=== PATIENT | female | born 1955 | race Hispanic/Latino ===

== ENCOUNTER 2018-01-09 22:45 | Emergency (ER) | payer OTHER, SELFPAY ==
[2018-01-09] MEDS ORDERED: DIAZEPAM 2 MG TABLET ONE (23:37)
[2018-01-09] MEDS ORDERED: HYDROCODONE/APAP 5/325 MG TAB ONE (23:37)
--- NOTE | 2018-01-10 01:19 | EDPHYS ---
Physician Documentation [facility] Name: Sri Traylor Age: 62 yrs Sex: Female : 1955 Arrival Date: 01/09/2018 Time: 22:46 Bed 23 Private MD: ED Physician Michele Martinez HPI: 01/09 23:30 This 62 yrs old Female presents to ER via Ambulatory with complaints of Fall snw Injury, Head Injury-Adult. 23:30 Details of fall: The patient fell from an upright position. Onset: The symptoms/episode snw began/occurred suddenly, today. Associated injuries: The patient sustained injury to the head, contusion, hematoma, swelling, tenderness. Severity of symptoms: At their worst the symptoms were moderate. The patient has not experienced similar symptoms in the past. The patient has not recently seen a physician. pt was mopping and her feet slipped out from under her and she struck her head on the floor. Historical: - Allergies: 22:57 No Known Allergies; tl3 - Home Meds: 22:57 None [Active]; tl3 - PMHx: 22:57 Cancer; tl3 - Immunization history:: Adult Immunizations not up to date. - Social history:: Smoking status: Patient uses tobacco products, smokes one-half pack cigarettes per day. - Ebola Screening: : No symptoms or risks identified at this time. ROS: 23:29 Constitutional: Negative for fever, chills, and weight loss, Eyes: Negative for injury, snw pain, redness, and discharge, ENT: Negative for injury, pain, and discharge, Neck: Negative for injury and swelling, + right lateral column tenderness Cardiovascular: Negative for chest pain, palpitations, and edema, Respiratory: Negative for shortness of breath, cough, wheezing, and pleuritic chest pain, Abdomen/GI: Negative for abdominal pain, nausea, vomiting, diarrhea, and constipation, Back: Negative for injury and pain, : Negative for injury, bleeding, discharge, and swelling, MS/Extremity: Negative for injury and deformity, Skin: Negative for injury, rash, and discoloration. 23:29 Neuro: Positive for striking head on the floor, no LOC, no vomiting. Exam: 23:28 Constitutional: This is a well developed, well nourished patient who is awake, alert, snw and in no acute distress. Eyes: Pupils equal round and reactive to light, extra-ocular motions intact. Lids and lashes normal. Conjunctiva and sclera are non-icteric and not injected. Cornea within normal limits. Periorbital areas with no swelling, redness, or edema. ENT: Nares patent. No nasal discharge, no septal abnormalities noted. Tympanic membranes are normal and external auditory canals are clear. Oropharynx with no redness, swelling, or masses, exudates, or evidence of obstruction, uvula midline. Mucous membranes moist. Neck: Trachea midline, no thyromegaly or masses palpated, and no cervical lymphadenopathy. Supple, full range of motion without nuchal rigidity, or vertebral point tenderness. No Meningismus. Chest/axilla: Normal chest wall appearance and motion. Nontender with no deformity. No lesions are appreciated. Cardiovascular: Regular rate and rhythm with a normal S1 and S2. No gallops, murmurs, or rubs. Normal PMI, no JVD. No pulse deficits. Respiratory: Lungs have equal breath sounds bilaterally, clear to auscultation and percussion. No rales, rhonchi or wheezes noted. No increased work of breathing, no retractions or nasal flaring. Abdomen/GI: Soft, non-tender, with normal bowel sounds. No distension or tympany. No guarding or rebound. No evidence of tenderness throughout. Back: No spinal tenderness. No costovertebral tenderness. Full range of motion. Skin: Warm, dry with normal turgor. Normal color with no rashes, no lesions, and no evidence of cellulitis. MS/ Extremity: Pulses equal, no cyanosis. Neurovascular intact. Full, normal range of motion. Neuro: Awake and alert, GCS 15, oriented to person, place, time, and situation. Cranial nerves II-XII grossly intact. Motor strength 5/5 in all extremities. Sensory grossly intact. Cerebellar exam normal. Normal gait. Psych: Awake, alert, with orientation to person, place and time. Behavior, mood, and affect are within normal limits. 23:28 Head/face: Noted is contusion, hematoma, that is moderate, of the occiput. Vital Signs: 22:57 BP 131 / 77; Pulse 73; Resp 18; Temp 98.6; Pulse Ox 99% on R/A; Weight 81.65 kg; Height tl3 5 ft. 1 in. (156 cm); 01/10 00:06 BP 128 / 78; Pulse 80; Resp 18; Pulse Ox 99% on R/A; Pain 4/10; mg2 01:09 BP 103 / 60; Pulse 65; Resp 18; Pulse Ox 97% ; Pain 2/10; mg2 01/09 22:57 Body Mass Index 33.55 (81.65 kg, 156 cm) tl3 MDM: 01/09 23:05 Patient medically screened. [facility] 01/10 01:19 Data reviewed: vital signs, nurses notes, radiologic studies. Data interpreted: Pulse snw oximetry: on room air is 97 %. Interpretation: normal. Counseling: I had a detailed discussion with the patient and/or guardian regarding: the historical points, exam findings, and any diagnostic results supporting the discharge/admit diagnosis, radiology results, to return to the emergency department if symptoms worsen or persist or if there are any questions or concerns that arise at home. Special discussion: Based on the patient's history, exam and DX evaluation, there is no indication for emergent intervention or inpatient TX. It is understood by the patient/guardian that if the SXs persist or worsen they need to return immediately for re-evaluation. Based on the history and exam findings, there is no indication for further emergent testing or inpatient evaluation. I discussed with the patient/guardian the need to see the primary care provider for further evaluation of the symptoms. 01/09 23:04 Order name: CT Head C Spine snw Administered Medications: 01/09 23:32 Drug: [place] 5 mg-325 mg 1 tabs Route: PO; mg2 01/10 01:36 Follow up: Response: No adverse reaction; Marked relief of symptoms mg2 01/09 23:33 Drug: Valium 2 mg Route: PO; mg2 01/10 01:36 Follow up: Response: No adverse reaction; Marked relief of symptoms mg2 Disposition: 06:06 Co-signature as Attending Physician, Michele Martinez MD I agree with the assessment and [facility] plan of care. Disposition: 01/10/18 01:18 Discharged to Home. Impression: Unspecified injury of head, Scalp hematoma. - Condition is Stable. - Discharge Instructions: Head Injury, Adult, Hematoma, Fall Prevention in the Home, Cryotherapy, Heat Therapy. - Prescriptions for Ultram 50 mg Oral Tablet - take 1 tablet by ORAL route every 6 hours As needed; 30 tablet. orphenadrine citrate 100 mg Oral Tablet Sustained Release - take 1 tablet by ORAL route 2 times per day As needed; 20 tablet. - Work release form, Medication Reconciliation Form, Thank You Letter, Antibiotic Education, Prescription Opioid Use form. - Follow up: Private Physician; When: 2 - 3 days; Reason: Recheck today's complaints, Continuance of care, Re-evaluation by your physician. Follow up: Emergency Department; When: As needed; Reason: Worsening of condition. Signatures: Dispatcher [employer] EDMichele Terry, Kerry Zamudio MD, cha, JOURNAL CLERK-C JOURNAL CLERK-Csnw Tayler James, RN RN tl3 Lai Arndt, RN RN mg2 Corrections: (The following items were deleted from the chart) 01:37 01:18 01/10/2018 01:18 Discharged to Home. Impression: Unspecified injury of head; mg2 Scalp hematoma. Condition is Stable. Forms are Medication Reconciliation Form, Thank You Letter, Antibiotic Education, Prescription Opioid Use. Follow up: Private Physician; When: 2 - 3 days; Reason: Recheck today's complaints, Continuance of care, Re-evaluation by your physician. Follow up: Emergency Department; When: As needed; Reason: Worsening of condition. snw
--- NOTE | 2018-01-10 01:19 | ER ---
Nurse's Notes [facility] Name: Sri Traylor Age: 62 yrs Sex: Female : 1955 Arrival Date: 01/09/2018 Time: 22:46 Bed 23 Private MD: Diagnosis: Unspecified injury of head;Scalp hematoma Presentation: 01/09 22:54 Presenting complaint: Patient states: pt slipped while mopping the floor at work and tl3 has a hematoma to the back of her scalp, no LOC, no Vomiting, pain to the ear on the right side. Transition of care: patient was not received from another setting of care. Onset of symptoms was January 09, 2018 at 22:56. Risk Assessment: Do you want to hurt yourself or someone else? Patient reports no desire to harm self or others. Initial Sepsis Screen: Does the patient meet any 2 criteria? No. Patient's initial sepsis screen is negative. Does the patient have a suspected source of infection? No. Patient's initial sepsis screen is negative. Care prior to arrival: None. 22:54 Method Of Arrival: Ambulatory tl3 22:54 Acuity: MARJORIE 4 tl3 Triage Assessment: 22:57 General: Appears uncomfortable, Behavior is calm, cooperative, appropriate for age. tl3 Pain: Pain currently is 8 out of 10 on a pain scale. Historical: - Allergies: 22:57 No Known Allergies; tl3 - Home Meds: 22:57 None [Active]; tl3 - PMHx: 22:57 Cancer; tl3 - Immunization history:: Adult Immunizations not up to date. - Social history:: Smoking status: Patient uses tobacco products, smokes one-half pack cigarettes per day. - Ebola Screening: : No symptoms or risks identified at this time. Screenin:05 Abuse screen: Denies threats or abuse. Denies injuries from another. Nutritional mg2 screening: No deficits noted. Tuberculosis screening: No symptoms or risk factors identified. Fall Risk Fall in past 12 months (25 points). Assessment: 23:06 General: Appears in no apparent distress. comfortable, Behavior is calm, cooperative. mg2 Pain: Complains of pain in head Pain does not radiate. Pain currently is 4 out of 10 on a pain scale. Quality of pain is described as aching, Pain began in the morning Is intermittent. Neuro: Level of Consciousness is awake, alert, obeys commands, Oriented to person, place, time, situation. Cardiovascular: Capillary refill < 3 seconds Patient's skin is warm and dry. Respiratory: Airway is patent Respiratory effort is even, unlabored, Respiratory pattern is regular, symmetrical. GI: No deficits noted. : No deficits noted. EENT: No deficits noted. Derm: Skin is intact, is healthy with good turgor, Skin is pink, warm \T\ dry. normal. Musculoskeletal: Swelling present in parietal area. Injury Description: Head injury sustained to head is closed, did not have loss of consciousness. 01/10 00:12 Reassessment: Patient appears in no apparent distress at this time. Patient and/or mg2 family updated on plan of care and expected duration. Pain level reassessed. Patient is alert, oriented x 3, equal unlabored respirations, skin warm/dry/pink. patient sent to ct scan. Vital Signs: 01/09 22:57 BP 131 / 77; Pulse 73; Resp 18; Temp 98.6; Pulse Ox 99% on R/A; Weight 81.65 kg; Height tl3 5 ft. 1 in. (156 cm); 01/10 00:06 BP 128 / 78; Pulse 80; Resp 18; Pulse Ox 99% on R/A; Pain 4/10; mg2 01:09 BP 103 / 60; Pulse 65; Resp 18; Pulse Ox 97% ; Pain 2/10; mg2 11 22:57 Body Mass Index 33.55 (81.65 kg, 156 cm) tl3 ED Course: 01/09 22:46 Patient arrived in ED. am2 22:56 Triage completed. tl3 22:57 Arm band placed on right wrist. tl3 23:03 [facility]C [facility] snw 23:03 Michele Martinez MD is Attending Physician. snw 23:05 Lai Arndt RN is Primary Nurse. mg2 23:06 Patient has correct armband on for positive identification. Pulse ox on. NIBP on. Door mg2 closed. Warm blanket given. 23:06 No provider procedures requiring assistance completed. Patient did not have IV access mg2 during this emergency room visit. 01/10 00:[address] via wheelchair. kw1 00:13 CT completed. Patient tolerated procedure well. Patient moved back from CT. kw1 00:14 CT Head C Spine In Process Unspecified. EDMS Administered Medications: 01/09 23:32 Drug: [place] 5 mg-325 mg 1 tabs Route: PO; mg2 01/10 01:36 Follow up: Response: No adverse reaction; Marked relief of symptoms mg2 01/09 23:33 Drug: Valium 2 mg Route: PO; mg2 01/10 01:36 Follow up: Response: No adverse reaction; Marked relief of symptoms mg2 Outcome: 01:18 Discharge ordered by MD. haque 01:37 Discharged to home ambulatory, with family. mg2 01:37 Condition: stable 01:37 Discharge instructions given to patient, family, Instructed on discharge instructions, follow up and referral plans. medication usage, Demonstrated understanding of instructions, follow-up care, medications, Prescriptions given X 2. 01:37 Patient left the ED. mg2 Signatures: Dispatcher [employer] EDMS Kerry Alonzo, ECONOMICS CONSULTANT-C ECONOMICS CONSULTANT-Csnw Brianne Mckinney am2 Sonia Gay kw1 Tayler James RN RN tl3 Lai Arndt, NADEGE RN mg2 Corrections: (The following items were deleted from the chart) 01:10 01:09 Pulse 65bpm; Resp 18bpm; Pulse Ox 97%; Pain 2/10; mg2 mg2
--- NOTE | 2018-01-10 06:45 | RAD REPORT ---
EXAM DESCRIPTION: CT - CTHCSPWOC - 01/10/2018 4:13 am CLINICAL HISTORY: Slip and fall, head and neck injury A preliminary report was provided at the time of the study and reviewed prior to final report. COMPARISON: None. TECHNIQUE: Axial 5 mm thick images of the head were obtained. Axial 2 mm thick images of the cervic al spine were obtained with sagittal and coronal reconstruction images generated and reviewed. All CT scans are performed using dose optimization technique as appropriate and may include automated exposure control or mA/KV adjustment according to patient size. FINDINGS: No intracranial hemorrhage, mass, edema or acute intracranial finding. No suspicion for ac joan infarction. No significant atrophy or chronic ischemic change. Ventricles are normal. Mastoid air cells and paranasal sinuses are clear. No globe or orbit abnormality seen. Moderate-size posterior r ight scalp hematoma present. Underlying bone is intact. Cervical bodies are normal in height. No subluxation abnormality. There is straightening of the usual cervical lordosis with slight reversal at the C5-6 level. C5-6 disc space narrowing and endplate spu rring present. No significant bony foraminal encroachment. No fracture or acute bony abnormality. Toni tral canal detail is inherently limited. No paraspinal mass or hematoma. IMPRESSION: No hemorrhage or acute intracranial finding. Moderate-sized posterior right scalp hemato ma is present with underlying skull intact. C5-6 disc and endplate degenerative change. Slight wedging of C6 is not suspected to be an acute proc ess. If patient has continued cervical pain, MR imaging could be performed.
== END 2018-01-10 01:37 | disposition home or self-care (01) ==
LOC: ER 22:45
DX: S00.03XA Contusion of scalp, initial encounter (principal); W01.0XXA Fall on same level from slipping, tripping and stumbling without subsequent striking against object, initial encounter; Y93.89 Activity, other specified; Y92.9 Unspecified place or not applicable; Y99.0 Civilian activity done for income or pay; F17.210 Nicotine dependence, cigarettes, uncomplicated
CPT/HCPCS: 70450; 72125; 99284

== ENCOUNTER 2018-05-22 22:36 | Emergency (ER) | payer SELFPAY ==
[2018-05-22 23:59] LABS: Absolute Monocytes 0.8 K/uL (0.1-1.3); Absolute Neutrophil 8.4 K/uL (1.8-8.0); Basophils % 0.6 % (0-1.3); Eosinophils % 2.1 % (0-4.4); Hematocrit 41.9 % (36.0-45.0); Lymphocytes % 17.8 % (15.3-44.8); Monocytes % 6.7 % (3.3-12.3); RBC Red Blood Cell Count 4.82 M/uL (3.86-4.86)
[2018-05-23 00:04] LABS: Potassium 3.6 mmol/L (3.5-5.1)
[2018-05-23] MEDS ORDERED: TETANUS & DIPHTHERIA TOX,ADULT 0.5 ML VIAL ONE (00:10)
--- NOTE | 2018-05-23 02:49 | ER ---
Nurse's Notes [facility] Name: Sri Traylor Age: 62 yrs Sex: Female : 1955 Arrival Date: 05/22/2018 Time: 22:41 Bed 14 Private MD: Diagnosis: Fall (on) (from) other stairs and steps;Contusion of scalp;Contusion of unspecified back wall of thorax-from fall;Concussion Presentation: 05/22 22:49 Presenting complaint: Patient states: mopping at work, fell backward down 3 steps. pt ak1 with lac to back of head. pt c/o right rib pain, lower back pain and headpain. pt denies LOC. Transition of care: patient was not received from another setting of care. Mechanism of Injury: resulted from a fall, slipped. Onset of symptoms was May 22, 2018. Risk Assessment: Do you want to hurt yourself or someone else? Patient reports no desire to harm self or others. Care prior to arrival: None. 22:49 Method Of Arrival: Ambulatory ak1 22:49 Acuity: MARJORIE 3 ak1 Triage Assessment: 22:50 General: Appears in no apparent distress. Behavior is calm, cooperative. Neuro: Level ak1 of Consciousness is awake, alert, obeys commands, Oriented to person, place, time, situation, Assembler Corncob Pipes are equal bilaterally Moves all extremities. Gait is steady, Speech is normal. Historical: - Allergies: 22:50 No Known Allergies; ak1 - Home Meds: 22:50 None [Active]; ak1 - PMHx: 22:50 Cancer; ak1 - PSHx: 22:50 left knee sx; left ankle sx; ak1 - Immunization history:: Adult Immunizations unknown. - Social history:: Smoking status: Patient uses tobacco products, denies chronic smoking, but will smoke occasionally. - Ebola Screening: : No symptoms or risks identified at this time. Screenin:05 Abuse screen: Denies threats or abuse. Nutritional screening: No deficits noted. jb4 Tuberculosis screening: No symptoms or risk factors identified. Fall Risk Fall in past 12 months (25 points). Mental Status- Oriented to own ability (0 pts). Total Pimentel Fall Scale indicates Low Risk Score (25-44 pts). Fall prevention measures have been instituted. Side Rails Up X 2 Placed close to Nursing Station Frequent Obs/Assesments occuring Family Present and informed to notify staff if they need to leave bedside. Assessment: 23:05 General: Appears in no apparent distress. uncomfortable, Behavior is calm, cooperative, jb4 appropriate for age. Pain: Complains of pain in scalp, low back area and mid back area Pain does not radiate. Pain currently is 8 out of 10 on a pain scale. Quality of pain is described as It just hurts. Neuro: Level of Consciousness is awake, alert, obeys commands, Oriented to person, place, time, situation. Cardiovascular: Patient's skin is warm and dry. Respiratory: Airway is patent Respiratory effort is even, unlabored, Respiratory pattern is regular, symmetrical. GI: No signs and/or symptoms were reported involving the gastrointestinal system. : No signs and/or symptoms were reported regarding the genitourinary system. EENT: No signs and/or symptoms were reported regarding the EENT system. Derm: Skin is intact, Skin is pink, warm \T\ dry. Musculoskeletal: Circulation, motion, and sensation intact. 23:05 Injury Description: Laceration sustained to scalp. jb4 05/23 00:30 Reassessment: Patient appears in no apparent distress at this time. No changes from jb4 previously documented assessment. Patient and/or family updated on plan of care and expected duration. Pain level reassessed. 01:30 Reassessment: Patient appears in no apparent distress at this time. Patient and/or jb4 family updated on plan of care and expected duration. Pain level reassessed. Patient is alert, oriented x 3, equal unlabored respirations, skin warm/dry/pink. 03:00 Reassessment: Patient appears in no apparent distress at this time. Patient and/or jb4 family updated on plan of care and expected duration. Pain level reassessed. Patient is alert, oriented x 3, equal unlabored respirations, skin warm/dry/pink. Vital Signs: 05/22 22:48 BP 116 / 75; Pulse 78; Resp 18; Temp 98.2(TE); Pulse Ox 98% on R/A; Weight 90.72 kg ak1 (R); Height 5 ft. 3 in. (160.02 cm) (R); Pain 5/10; 23:15 BP 119 / 72; Pulse 65; Resp 16; Pulse Ox 99% on R/A; jb4 05/23 00:45 BP 103 / 66; Pulse 68; Resp 16; Pulse Ox 99% on R/A; jb4 01:51 BP 106 / 76; Pulse 76; Resp 16; Pulse Ox 100% on R/A; jb4 02:59 BP 107 / 65; Pulse 66; Resp 16; Pulse Ox 100% on R/A; jb4 05/22 22:48 Body Mass Index 35.43 (90.72 kg, 160.02 cm) ak1 Inna Coma Score: 05/22 22:49 Eye Response: spontaneous(4). Verbal Response: oriented(5). Motor Response: obeys ak1 commands(6). Total: 15. ED Course: 22:41 Patient arrived in ED. es 22:50 Triage completed. ak1 22:50 Arm band placed on Patient placed in an exam room, on a stretcher, Patient notified of ak1 wait time. 23:03 Nolan Tillman, RN is Primary Nurse. jb4 23:05 Patient has correct armband on for positive identification. Bed in low position. Call jb4 light in reach. Side rails up X 1. Pulse ox on. NIBP on. 23:09 Michele Bell PA is PHCP. cp 23:09 Jean Carlos Dee MD is Attending Physician. cp 23:50 Initial lab(s) drawn, by me, sent to lab. Inserted saline lock: 20 gauge in left jb4 antecubital area, using aseptic technique. Blood collected. 05/23 00:42 CT Traumagram (Head C Spine CAP wo con) In Process Unspecified. EDMS 03:00 No provider procedures requiring assistance completed. IV discontinued, intact, jb4 bleeding controlled. Administered Medications: 00:00 Drug: Tetanus-Diphtheria Toxoid Adult 0.5 ml {Sheet Combining Operator: [employer]. Exp: jb4 04/20/2020. Lot #: [id number]. } Route: IM; Site: left deltoid; 01:38 Follow up: Response: No adverse reaction jb4 Outcome: 02:48 Discharge ordered by . cp 03:02 Discharged to home ambulatory, with family. jb4 03:02 Condition: stable 03:02 Discharge instructions given to patient, family, Instructed on discharge instructions, follow up and referral plans. medication usage, Demonstrated understanding of instructions, follow-up care, medications, Prescriptions given X 1. 03:02 Patient left the ED. jb4 Signatures: Dispatcher [employer] EDDeidra Khanna Amber RN RN ak1 Michele Bell PA PA cp Bryson, James, RN RN jb4 Corrections: (The following items were deleted from the chart) 05/22 23:17 23:05 Derm: Skin is intact, Skin is pink, warm \T\ dry. jb4 jb4
--- NOTE | 2018-05-23 02:49 | EDPHYS ---
Physician Documentation [facility] Name: Sri Traylor Age: 62 yrs Sex: Female : 1955 Arrival Date: 05/22/2018 Time: 22:41 Bed 14 Private MD: ED Physician Jean Carlos Dee HPI: 05/22 23:19 This 62 yrs old Female presents to ER via Ambulatory with complaints of Head cp Injury-Adult. 23:20 Trauma demographics: County: The injury occurred in [place] Location of Injury: The cp injury occurred at work, Date: May 22, 2018. Mechanism of injury: Fall: the patient fell down 3 steps, and struck a tile surface, backward while mopping floor. Associated injuries: The patient sustained injury to the head, abrasion, contusion, pain, neck injury, tenderness, upper back injury, pain, pelvis, painful injury. Onset: The symptoms/episode began/occurred just prior to arrival. 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 Patient believes she did not have LOC. Historical: - Allergies: 22:50 No Known Allergies; ak1 - Home Meds: 22:50 None [Active]; ak1 - PMHx: 22:50 Cancer; ak1 - PSHx: 22:50 left knee sx; left ankle sx; ak1 - Immunization history:: Adult Immunizations unknown. - Social history:: Smoking status: Patient uses tobacco products, denies chronic smoking, but will smoke occasionally. - Ebola Screening: : No symptoms or risks identified at this time. ROS: 23:25 Constitutional: Negative for body aches, chills, fever, poor PO intake. cp 23:25 Eyes: Negative for injury, pain, redness, and discharge. cp 23:25 ENT: Negative for drainage from ear(s), ear pain, sore throat, difficulty swallowing, difficulty handling secretions. 23:25 Cardiovascular: Negative for chest pain, edema, palpitations. 23:25 Respiratory: Negative for cough, shortness of breath, wheezing. 23:25 Abdomen/GI: Negative for abdominal pain, nausea, vomiting, and diarrhea, constipation. 23:25 Back: Positive for pain at rest, pain with movement, of the thoracic area. 23:25 MS/extremity: Positive for pain, of the pelvis. 23:25 Neuro: Positive for headache, Negative for altered mental status, seizure activity, syncope, weakness. 23:25 All other systems are negative. Exam: 23:35 Constitutional: The patient appears in no acute distress, alert, awake, cp non-diaphoretic, non-toxic, well developed, well nourished, uncomfortable. 23:35 Head/face: Noted is abrasion(s), that are mild, of the left side of the back of head cp and right side of the back of head, swelling, that is mild, of the left side of the back of head and right side of the back of head, tenderness, that is moderate, of the left side of the back of head and right side of the back of head. 23:35 Eyes: Periorbital structures: appear normal, Pupils: equal, round, and reactive to light and accomodation, Extraocular movements: intact throughout, Conjunctiva: normal, no exudate, no injection, Sclera: no appreciated abnormality, Lids and lashes: appear normal, bilaterally. 23:35 ENT: External ear(s): are unremarkable, Ear canal(s): are normal, clear, TM's: bulging, is not appreciated, bilaterally, dullness, bilaterally, erythema, is not appreciated, bilaterally, Nose: is normal, Mouth: Lips: moist, Oral mucosa: pink and intact, moist, Posterior pharynx: Airway: no evidence of obstruction, patent. 23:35 Neck: C-spine: C-collar placed in ED, vertebral tenderness, that is mild, crepitus, is not appreciated. 23:35 Chest/axilla: Inspection: normal, Palpation: is normal, no crepitus, no tenderness. 23:35 Cardiovascular: Rate: normal, Rhythm: regular, Pulses: Pulses are 2+ in right radial artery and left radial artery. Edema: is not appreciated, JVD: is not appreciated. 23:35 Respiratory: the patient does not display signs of respiratory distress, Respirations: normal, no use of accessory muscles, no retractions, no splinting, no tachypnea, labored breathing, is not present, Breath sounds: are clear throughout, no decreased breath sounds, no stridor, no wheezing. 23:35 Abdomen/GI: Inspection: abdomen appears normal, Bowel sounds: active, all quadrants, Palpation: abdomen is soft and non-tender, in all quadrants, rebound tenderness, is not appreciated, voluntary guarding, is not appreciated, involuntary guarding, is not appreciated. 23:35 Back: pain, that is mild, of the thoracic area, ROM is painful, with all movement, vertebral tenderness, is appreciated at T5 and T6, Straight leg raises: of both lower extremities does not illicit pain. 23:35 Musculoskeletal/extremity: Exam is negative for decreased range of motion, deformity, injury. 23:35 Skin: no rash present. 23:35 Neuro: Orientation: to person, place \T\ time. Mentation: is normal, Cerebellar function: is grossly normal, Motor: moves all fours, strength is normal, Sensation: no obvious gross deficits. Vital Signs: 22:48 BP 116 / 75; Pulse 78; Resp 18; Temp 98.2(TE); Pulse Ox 98% on R/A; Weight 90.72 kg ak1 (R); Height 5 ft. 3 in. (160.02 cm) (R); Pain 5/10; 23:15 BP 119 / 72; Pulse 65; Resp 16; Pulse Ox 99% on R/A; jb4 05/23 00:45 BP 103 / 66; Pulse 68; Resp 16; Pulse Ox 99% on R/A; jb4 01:51 BP 106 / 76; Pulse 76; Resp 16; Pulse Ox 100% on R/A; jb4 02:59 BP 107 / 65; Pulse 66; Resp 16; Pulse Ox 100% on R/A; jb4 05/22 22:48 Body Mass Index 35.43 (90.72 kg, 160.02 cm) ak1 Golva Coma Score: 05/22 22:49 Eye Response: spontaneous(4). Verbal Response: oriented(5). Motor Response: obeys ak1 commands(6). Total: 15. MDM: 23:09 Patient medically screened. cp 23:30 Differential diagnosis: closed head injury, extremity fracture, C spine fracture, T cp spine fracture, L spine fracture. 05/23 02:47 Data reviewed: vital signs, nurses notes, lab test result(s), radiologic studies, CT cp scan. 02:47 Counseling: I had a detailed discussion with the patient and/or guardian regarding: the cp historical points, exam findings, and any diagnostic results supporting the discharge/admit diagnosis, lab results, radiology results, the need for outpatient follow up, a family practitioner, to return to the emergency department if symptoms worsen or persist or if there are any questions or concerns that arise at home. Response to treatment: the patient's symptoms have markedly improved after treatment, and as a result, I will discharge patient. 05/22 23:16 Order name: Basic Metabolic Panel; Complete Time: 00:35 cp 05/22 23:16 Order name: CBC with Diff; Complete Time: 00:35 cp 05/22 23:16 Order name: CT Traumagram (Head C Spine CAP wo con) cp 05/22 23:16 Order name: Creatinine for Radiology; Complete Time: 00:35 cp 05/22 23:16 Order name: Type And Screen; Complete Time: 00:35 cp 05/23 01:18 Order name: ABO/RH no charge; Complete Time: 02:50 EDMS 05/22 23:16 Order name: C-Collar; Complete Time: 23:18 cp 05/22 23:16 Order name: Labs collected and sent; Complete Time: 23:39 cp 05/22 23:20 Order name: Wound Care: please irrigate head wound; Complete Time: 01:37 cp Administered Medications: 00:00 Drug: Tetanus-Diphtheria Toxoid Adult 0.5 ml {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 Exp: jb4 04/20/2020. Lot #: [id number]. } Route: IM; Site: left deltoid; 01:38 Follow up: Response: No adverse reaction jb4 Disposition: 03:15 Chart complete. cp Disposition: 05/23/18 02:48 Discharged to Home. Impression: Fall (on) (from) other stairs and steps, Contusion of scalp, Contusion of unspecified back wall of thorax - from fall, Concussion. - Condition is Stable. - Discharge Instructions: Concussion, Adult, Head Injury, Adult, Musculoskeletal Pain. - Prescriptions for Ibuprofen 800 mg Oral Tablet - take 1 tablet by ORAL route every 8 hours As needed take with food; 30 tablet. - Medication Reconciliation Form, Thank You Letter, Antibiotic Education, Prescription Opioid Use form. - Follow up: Private Physician; When: 1 - 2 days; Reason: Recheck today's complaints. - Problem is new. - Symptoms have improved. Signatures: Dispatcher [employer] Gladys Clark RN RN ak1 Michele Bell PA PA cp Bryson, James, RN RN jb4 Corrections: (The following items were deleted from the chart) 02:49 02:48 05/23/2018 02:48 Discharged to Home. Impression: Fall (on) (from) other stairs cp and steps; Contusion of scalp; Contusion of unspecified back wall of thorax - from fall. Condition is Stable. Forms are Medication Reconciliation Form, Thank You Letter, Antibiotic Education, Prescription Opioid Use. Follow up: Private Physician; When: 1 - 2 days; Reason: Recheck today's complaints. Problem is new. Symptoms have improved. cp 03:02 02:49 05/23/2018 02:48 Discharged to Home. Impression: Fall (on) (from) other stairs jb4 and steps; Contusion of scalp; Contusion of unspecified back wall of thorax - from fall; Concussion. Condition is Stable. Discharge Instructions: Concussion, Adult, Head Injury, Adult, Musculoskeletal Pain. Forms are Medication Reconciliation Form, Thank You Letter, Antibiotic Education, Prescription Opioid Use. Follow up: Private Physician; When: 1 - 2 days; Reason: Recheck today's complaints. Problem is new. Symptoms have improved. cp
--- NOTE | 2018-05-23 10:30 | RAD REPORT ---
EXAM DESCRIPTION: CT Head Without Intravenous Contrast CT Cervical Spine Without Intravenous Contrast ADDENDUM: CT Chest Without Intravenous Contrast CT Abdomen and Pelvis Without Intravenous Contrast CLINICAL HISTORY: The patient is 62 years old and is Female; fall down 3 stairs TECHNIQUE: Axial computed tomography images of the chest, abdomen and pelvis without intravenous con trast. Sagittal and coronal reformatted images were created and reviewed. This CT exam was perfor med using one or more of the following dose reduction techniques: automated exposure control, adjus tment of the mA and/or kV according to patient size, and/or use of iterative reconstruction technique . COMPARISON: None. FINDINGS: CHEST: LUNGS: Unremarkable. No mass. No consolidation. PLEURAL SPACE: No focal consolidation, pleural effusion or pneumothorax. HEART: Heart is within normal limits. No significant pericardial effusion. MEDIASTINUM: Small hiatal hernia. THYROID: Thyroid is within normal limits. ABDOMEN: LIVER: Unremarkable. GALLBLADDER AND BILE DUCTS: Prior cholecystectomy. No ductal dilation. PANCREAS: Unremarkable. No ductal dilation. SPLEEN: Unremarkable. No splenomegaly. ADRENALS: Unremarkable. No mass. KIDNEYS AND URETERS: Nonobstructive right renal stone. STOMACH AND BOWEL: Sigmoid diverticulosis without CT evidence of acute diverticulitis. No obstruction. PELVIS: APPENDIX: The appendix is seen and is within normal limits. BLADDER: Unremarkable. No stones. REPRODUCTIVE: Unremarkable as visualized. CHEST, ABDOMEN and PELVIS: INTRAPERITONEAL SPACE: Unremarkable. No significant fluid collection. No free air. BONES/JOINTS: Unremarkable. No acute fracture. No dislocation. SOFT TISSUES: Unremarkable. VASCULATURE: Unremarkable. No aortic aneurysm. LYMPH NODES: No mediastinal or hilar lymphadenopathy. IMPRESSION: 1. No acute intrathoracic, abdominal or pelvic abnormality. 2. Nonobstructive right renal stone. 3. Sigmoid diverticulosis without CT evidence of acute diverticulitis. Electronically signed by: Dawson Bose DO 05/23/2018 2:24 AM CDT End of Addendum EXAM DESCRIPTION: CT Head Without Intravenous Contrast CT Cervical Spine Without Intravenous Contrast CLINICAL HISTORY: The patient is 62 years old and is Female; fall down 3 stairs TECHNIQUE: Axial computed tomography images of the head/brain and cervical spine without intravenous contrast. Sagittal and coronal reformatted images were created and reviewed. This CT exam was pe rformed using one or more of the following dose reduction techniques: automated exposure control, a djustment of the mA and/or kV according to patient size, and/or use of iterative reconstruction techn ique. COMPARISON: CT head and cervical spine without contrast dated January 09, 2018. FINDINGS: BRAIN: Unremarkable. No hemorrhage. No significant white matter disease. No edema . VENTRICLES: Unremarkable. No ventriculomegaly. SKULL: No acute fracture. SINUSES: Unremarkable as visualized. No acute sinusitis. MASTOID AIR CELLS: Unremarkable as visualized. No mastoid effusion. VERTEBRAE: Reversal of cervical lordosis centered at C5-6. Trace anterolisthesis of C4 on C5 and C5 on C6. Spondylosis at C5-6 with mild spinal canal narrowing. No acute fracture. DISCS/SPINAL CANAL/NEURAL FORAMINA: No acute findings. No spinal canal stenosis. SOFT TISSUES: Parieto-occipital scalp laceration and soft tissue swelling. THYROID: Visualized thyroid is within normal limits. LUNG APICES: Apical lung zones are clear. IMPRESSION: 1. No acute intracranial abnormality. 2. No acute cervical spine fracture. 3. Parieto-occipital scalp laceration and swelling. 4. Unchanged reversal of cervical lordosis and spondylosis at C5-6. Electronically signed by: Dawson Bose DO 05/23/2018 12:52 AM CDT Due to temporary technical issues with the PACS/Fluency reporting system, reports are being signed by the in house radiologist as a courtesy to ensure prompt reporting. The interpreting radiologist is f ully responsible for the content of the report.
== END 2018-05-23 03:02 | disposition home or self-care (01) ==
LOC: ER 22:36
DX: S06.0X0A Concussion without loss of consciousness, initial encounter (principal); S00.03XA Contusion of scalp, initial encounter; S20.229A Contusion of unspecified back wall of thorax, initial encounter; W10.9XXA Fall (on) (from) unspecified stairs and steps, initial encounter; Y93.89 Activity, other specified; Y92.9 Unspecified place or not applicable; Y99.8 Other external cause status; Z23 Encounter for immunization
CPT/HCPCS: 36415; 70450; 71250; 72125; 80048; 85025; 86850; 86900; 86901; 90714; 99284